=== PATIENT | male | born 1960 | race Two or more races ===

== ENCOUNTER 2016-12-07 06:59 | Day surgery (SDC) | payer OTHER ==
[~2016-12-07] VITALS: Ht 160 cm; Wt 79.6 kg
[~2016-12-07 06:59] MED LIST: BENA10TA48; DOCU-144 PO; HYD25; OXYC-281 PO
[2016-12-07 07:33] VITALS: Ht 160 cm; Wt 79.6 kg
[2016-12-07 07:57] VITALS: BP 135/75; PULSE 54; RESP 12
[2016-12-07 09:07] VITALS: BP 108/59; RESP 20
--- NOTE | 2016-12-07 10:21 | GILP ---
DATE OF PROCEDURE: 12/07/2016 PROCEDURE PERFORMED: Colonoscopy with polypectomy. INDICATION: A 56-year-old male undergoing this procedure for surveillance of colon polyp. He had a colon polyp removed with the left-sided hemicolectomy in the past. The risks of the procedure, related and unrelated complications, anesthetic risks, and alternatives discussed. Informed consent was obtained. DESCRIPTION OF PROCEDURE: The patient was brought to the GI lab, sedated with Versed 3 mg and fentanyl 75 mg. After optimal sedation, scope was passed with much ease into the rectum. Advanced through sigmoid, descending, transverse colon all the way into the cecum. Appendiceal orifice identified. IC valve identified. There was collection of some stool in the cecum and ascending colon precluding the visibility by 5 percent, but the rest of the colon appeared normal. Anastomosis site was at 22 cm. There was a polyp identified, broad-based, about 2.5 cm in diameter, successfully removed by hot snare technique. Polyp was retrieved and sent for analysis. The site was injected with Monica ink. [____]. The rest of the colon appeared normal. IMPRESSION: 1. Polyp 2.5 cm at 20 cm, successfully removed by hot snare technique. 2. Negative all the way into the cecum. 3. Anastomosis at 22 cm. 4. Preparation was adequate. PLAN: Review the histopathology of the polyp. High-fiber diet. The patient has been advised to come to the office for follow-up. Dictated By: Maximo Starks MD /tete/debbie /Document#: [id number]
[2016-12-08] MEDS ORDERED: MIDAZOLAM 1 MG/ML 2 ML INJ ONE ×2 (18:02)
[2016-12-08] MEDS ORDERED: FENTAnyl 50 MCG/ML VIAL ONE (18:02)
== END 2016-12-07 10:50 | disposition home or self-care (01) ==
LOC: GIL 06:59
PROVIDERS: ATTEND Internal Medicine Gastroenterology
DX: K63.5 Polyp of colon (principal); I10 Essential (primary) hypertension
CPT/HCPCS: 45385; 88305; Z7610; J2250; J3010

== ENCOUNTER 2017-10-28 05:51 | Day surgery (SDC) | END 2017-10-28 14:20 | disposition home or self-care (01) ==